=== PATIENT | male | born 1980 | race Two or more races ===

== ENCOUNTER 2023-01-11 15:39 | Emergency (ER) | payer BC ==
[~2023-01-11] VITALS: Ht 172.7 cm; Wt 92.1 kg
[2023-01-11] MEDS ORDERED: KETOROLAC TROMETHAMINE INJ 30 MG/ML VIAL ONE (16:29)
[2023-01-11] MEDS ORDERED: CYCLOBENZAPRINE 10 MG TABLET ONE (16:29)
[2023-01-11] MEDS ORDERED: KETOROLAC TROMETHAMINE INJ 60 MG/2 ML VIAL IM ONE (16:30)
[2023-01-11] MEDS ORDERED: CYCLOBENZAPRINE 10 MG TABLET PO ONE (16:30)
[2023-01-11] MEDS ORDERED: IBUP-1955 PO (17:32)
[2023-01-11] MEDS ORDERED: CYCL10TA9 PO (17:32)
[2023-01-11 18:01] VITALS: BP 128/75; TEMP 98.6; O2SAT 99
== END 2023-01-11 18:01 | disposition home or self-care (01) ==
LOC: ER 15:45
DX: S39.012A Strain of muscle, fascia and tendon of lower back, initial encounter (principal); R51.9 Headache, unspecified; Z79.899 Other long term (current) drug therapy; Z60.2 Problems related to living alone; W01.0XXA Fall on same level from slipping, tripping and stumbling without subsequent striking against object, initial encounter; Y93.89 Activity, other specified; Y92.89 Other specified places as the place of occurrence of the external cause; Y99.8 Other external cause status
CPT/HCPCS: 99285; 70450; 96372; 72110; 73090; 73564; 73590; 73110; J1885